=== PATIENT | male | born 1955 | race Caucasian/White ===

== ENCOUNTER 2017-02-22 18:35 | Emergency (ER) | payer OTHER ==
[~2017-02-22 18:35] MED LIST: ALBUTEROL0.63 MG/3 INH; CHLORDIAZEPOXID25 MG PO; CLOTRIMAZOLE-BE45 GM TOP; FEOSOL325 MG PO; HYDROCODON-ACE1 EAC6 PO; HYDROCORTISONE30 G4 TOP; LISINOPRIL20 MG PO; NEURONTIN400 MG PO; NICODERM 21MG PA1 EA TD; PRILOSEC40 MG PO; PROVENTIL INHAL17 GM INH; SPIRIVA HANDIH90 MCG INH; SULFAMETHOXAZOLE1 EA PO; TYLENOL325 M1 PO; VALIUM5 MG PO
[2017-02-22 19:54] LABS: BASO # 0.1 10_X3_uL (0.0-0.1); EOS # 0.3 10_X3_uL (0.0-0.5); EOS % 5.4 % (0.8-7.0); GRAN # 2.4 10_X3_uL (1.8-5.4); GRAN % 38.8 % (34.0-67.9); HEMATOCRIT 37.5 % (40-51); HEMOGLOBIN 12.4 g/dL (13.7-17.5); LYMPH # 2.9 10_X3_uL (1.3-3.6); LYMPH % 47.2 % (21.8-53.1); MEAN CORPUSCULAR HEMOGLOBIN 32.5 pg (27.0-33.0); MEAN CORPUSCULAR HGB CONC 33.1 g/dL (32.0-36.0); MEAN CORPUSCULAR VOLUME 98.4 fL (79-92); MEAN PLATELET VOLUME 8.5 fl (7.5-11.5); MONO # 0.5 10_X3_uL (0.3-0.8); MONO % 7.6 % (5.3-12.2); PLATELET COUNT 229 x10_3/uL (163-337); RED BLOOD COUNT 3.81 x10_6/uL (4.6-6.1); RED CELL DISTRIBUTION WIDTH 15.2 % (11.6-14.4); WHITE BLOOD COUNT 6.2 x10_3/uL (4.2-9.1)
[2017-02-22 20:08] LABS: BLOOD UREA NITROGEN 10 mg/dL (7-18); CALCIUM 8.5 mg/dL (8.7-10.7); CARBON DIOXIDE 20 mmol/L (21-32); CREATININE 0.6 mg/dL (0.6-1.3); GLUCOSE,RANDOM 90 mg/dL (70-99); POTASSIUM 3.8 mmol/L (3.5-5.1); SODIUM 142 mmol/L (136-145)
== END 2017-02-22 20:55 | disposition home or self-care (01) ==
LOC: ER 18:35
PROVIDERS: General Practice
DX: J44.9 Chronic obstructive pulmonary disease, unspecified (principal); R06.02 Shortness of breath; J84.9 Interstitial pulmonary disease, unspecified; I25.2 Old myocardial infarction; I10 Essential (primary) hypertension; I25.10 Atherosclerotic heart disease of native coronary artery without angina pectoris; I73.9 Peripheral vascular disease, unspecified; K74.60 Unspecified cirrhosis of liver; F10.20 Alcohol dependence, uncomplicated; Z88.0 Allergy status to penicillin
CPT/HCPCS: 36415; 71010; 80048; 85025; 93005; 96372; 99284-25; J2930